=== PATIENT | female | born 1975 | race Caucasian/White ===

== ENCOUNTER 2021-05-09 12:28 | Emergency (ER) | payer OTHER ==
[~2021-05-09] VITALS: Ht 157.5 cm; Wt 67.1 kg
== END 2021-05-09 16:30 | disposition home or self-care (01) ==
LOC: ER1 12:28
DX: U07.1 COVID-19 (principal); I10 Essential (primary) hypertension; Z88.0 Allergy status to penicillin; Z88.2 Allergy status to sulfonamides
CPT/HCPCS: 99283